=== PATIENT | male | born 1980 | race Caucasian/White ===

== ENCOUNTER → 2016-08-01 | Outpatient (CLI) | payer OTHER ==
--- NOTE | 2016-08-01 19:09 | DIREP ---
PROCEDURE:XRAY ANKLE MIN 3VWS-LT COMPARISON:None. INDICATIONS:ANKLE FX FINDINGS: BONES:Calcification along the distal syndesmosis consistent with prior injury. Hypertrophic changes to the medial malleolus consistent with a ligamentous trauma. No acute visible fracture. JOINTS:Ankle mortise symmetric. SOFT TISSUES:Normal. OTHER:No additional findings. CONCLUSION: 1. No acute osseous or joint space abnormality seen. 2. Findings suggesting old syndesmotic injury given calcification of the syndesmosis. 3. Old ligamentous trauma to the medial malleolus. Dictated by: Armen Clayton M.D. on 08/01/2016 at 07:06 PM
--- NOTE | 2016-08-01 19:10 | DIREP ---
PROCEDURE:XRAY KNEE 1-2 VWS-RT COMPARISON:None. INDICATIONS:KNEE PN FINDINGS: BONES:Normal. JOINTS:Normal. SOFT TISSUES:Normal. OTHER:No additional findings. CONCLUSION:No osseous or joint space abnormality seen. Dictated by: Armen Clayton M.D. on 08/01/2016 at 07:08 PM
--- NOTE | 2016-08-01 19:12 | DIREP ---
PROCEDURE:XRAY KNEE 1-2 VWS-LT COMPARISON:None. INDICATIONS:KNEE PN FINDINGS: BONES:Evidence of previous ACL graft. No visible fracture. Flattening of the lateral femoral condyle. Suspect prior proximal fibular fracture. JOINTS:No effusion. SOFT TISSUES:Normal. OTHER:No additional findings. CONCLUSION: 1. Slight flattening of the lateral femoral condyle, cannot exclude focal insufficiency fracture/osteonecrosis. MRI of the left knee could be obtained to further evaluate. 2. Prior ACL graft. 3. Remote healed proximal fibular fracture. Dictated by: Armen Clayton M.D. on 08/01/2016 at 07:09 PM
--- NOTE | 2016-08-01 19:13 | DIREP ---
PROCEDURE:XRAY SINUSES PARANASAL<3 VWS COMPARISON:None. INDICATIONS:SINUSITIS, KNEE PN,ANKLE FX, BACK PN, NECK PN TECHNIQUE: 3 views of the paranasal sinuses FINDINGS: MAXILLARY:Normal. No mucosal thickening or fluid level. ETHMOID:Normal. No mucosal thickening or fluid level. FRONTAL:Normal. No mucosal thickening or fluid level. SPHENOID:Normal. No mucosal thickening or fluid level. OTHER:Negative. CONCLUSION:Unremarkable paranasal sinus series, no air-fluid level seen. Dictated by: Armen Clayton M.D. on 08/01/2016 at 07:11 PM
--- NOTE | 2016-08-01 19:21 | DIREP ---
PROCEDURE:XR SPINE CERVICAL COMP W/ OBLIQUES COMPARISON:None. INDICATIONS:NECK PN TECHNIQUE:AP, lateral, bilateral oblique, and dens views of the cervical spine are provided. FINDINGS: ALIGNMENT:Straightening of the cervical spine which can be seen with positioning, spasm or strain. Cervicothoracic junction not well-seen on lateral view only the skull base through C6 visualized. VERTEBRAE:Anterior and dorsal disc osteophyte complex at C5-6. Oblique views and straight mild bony encroachment of the neural foramina bilaterally at C5-6. DISK SPACES:Severe disc space narrowing C5-6. CERVICAL RIBS:None. OTHER:Normal. CONCLUSION: 1. Straightening of the cervical spine which can be seen with positioning, spasm or strain. 2. Degenerative disc disease at C5-6 with anterior and dorsal disc osteophyte complex which would be better assessed with MRI. 3. Cervicothoracic junction not well assessed on lateral view. Dictated by: Armen Clayton M.D. On 08/01/2016 at 07:18 PM
--- NOTE | 2016-08-01 19:22 | DIREP ---
PROCEDURE:XRAY SPINE THORACIC 3 VWS COMPARISON:[facility], , XRAY SPINE LUMBAR 2-3 VWS, 08/01/2016, 06:22 PM. INDICATIONS:BACK PN the cervicothoracic junction are provided. FINDINGS: ALIGNMENT:Normal. VERTEBRAE:Upper thoracic spine evaluation limited by bony overlap on lateral view. No compression fracture seen. DISK SPACES:Mild multilevel disc space narrowing OTHER:Normal. CONCLUSION: 1. Limitations as above. 2. Mild multilevel thoracic spondylosis. 3. No compression fracture demonstrated. Dictated by: Armen Clayton M.D. on 08/01/2016 at 07:20 PM
--- NOTE | 2016-08-01 19:23 | DIREP ---
PROCEDURE:XRAY SPINE LUMBAR 2-3 VWS COMPARISON:[facility], , XRAY SPINE THORACIC 3 VWS, 08/01/2016, 06:22 PM. INDICATIONS:BACK PN TECHNIQUE:AP, lateral, and coned down lateral views of the lumbar spine are provided. FINDINGS: ALIGNMENT:Normal alignment, no listhesis VERTEBRAE:Small anterior disc osteophyte at L1-2 DISK SPACES:Mild disc space narrowing L1-2 SPONDYLOLISTHESIS:None. SACROILIAC JOINTS:Normal. OTHER:Normal. CONCLUSION: 1. Mild lumbar spondylosis with degenerative disc disease L1-2. Dictated by: Armen Clayton M.D. on 08/01/2016 at 07:21 PM
== END | disposition home or self-care (01) ==
LOC: RAD 18:16
PROVIDERS: ATTEND Nurse Practitioner Family
DX: S82.892A Other fracture of left lower leg, initial encounter for closed fracture (principal); M50.322 Other cervical disc degeneration at C5-C6 level; M51.36 Other intervertebral disc degeneration, lumbar region; J32.9 Chronic sinusitis, unspecified; M54.2 Cervicalgia; M47.894 Other spondylosis, thoracic region; M54.5 Low back pain; M47.896 Other spondylosis, lumbar region; M25.561 Pain in right knee; M25.562 Pain in left knee; X58.XXXA Exposure to other specified factors, initial encounter; Y93.89 Activity, other specified; Y92.89 Other specified places as the place of occurrence of the external cause; Y99.8 Other external cause status
CPT/HCPCS: 70220; 72050; 72070; 72100; 73560; 73610-LT